=== PATIENT | male | born 2000 | race Caucasian/White ===

== ENCOUNTER 2021-11-06 22:40 | Emergency (ER) | payer MEDICAID ==
[~2021-11-06] VITALS: Ht 182.9 cm; Wt 86.2 kg
[2021-11-06] MEDS ORDERED: LORAZEPAM 1MG TABLET PO ONE (23:30)
[2021-11-07 00:43] VITALS: BP 128/68
[2021-11-07] MEDS ORDERED: LORA-249 MT (00:47)
== END 2021-11-07 01:11 | disposition home or self-care (01) ==
LOC: ER 22:40
DX: F41.9 Anxiety disorder, unspecified (principal)
CPT/HCPCS: 71045; 99283